=== PATIENT | female | born 1985 | race Caucasian/White ===

== ENCOUNTER 2020-06-15 13:41 | Inpatient (IN) | payer OTHER ==
[2020-06-15 17:49] LABS: HCT 40.4 % (37.0-47.0); HGB 13.8 g/dl (12.5-16.0); MCH 29.9 pg (25.0-31.0); MCHC 34.2 g/dL (32.0-36.0); MCV 87.4 fL (78.0-100.0); MPV 11.6 fL (6.0-9.5); RBC 4.62 M/uL (4.20-5.40); WBC 12.5 K/uL (4.0-10.5)
[2020-06-15 17:52] LABS: BILIRUBIN NEGATIVE (NEGATIVE); BLOOD TRACE-INTACT Ery/uL (NEGATIVE); CLARITY CLEAR (CLEAR); COLOR YELLOW (YELLOW); GLUCOSE (U) NORMAL (NORMAL); LEUKOCYTES NEGATIVE Leu/uL (NEGATIVE); NITRITE NEGATIVE (NEGATIVE); PROTEIN NEGATIVE (NEGATIVE); UROBILINOGEN 0.2 mg/dL (0.2-1.0)
[2020-06-15 18:17] LABS: BACTERIA TRACE
[2020-06-16 14:06] LABS: BILIRUBIN NEGATIVE (NEGATIVE); BLOOD NEGATIVE Ery/uL (NEGATIVE); CLARITY CLEAR (CLEAR); COLOR YELLOW (YELLOW); GLUCOSE (U) NORMAL (NORMAL); LEUKOCYTES NEGATIVE Leu/uL (NEGATIVE); NITRITE NEGATIVE (NEGATIVE); PROTEIN NEGATIVE (NEGATIVE); SPECIFIC GRAVITY 1.025 (1.001-1.030); UROBILINOGEN 0.2 mg/dL (0.2-1.0); pH 5.5 (5.0-9.0)
[2020-06-17 05:46] LABS: HCT 30.5 % (37.0-47.0); HGB 10.2 g/dl (12.5-16.0); MCH 30.1 pg (25.0-31.0); MCHC 33.4 g/dL (32.0-36.0); MPV 11.4 fL (6.0-9.5); RBC 3.39 M/uL (4.20-5.40); RDW 13.1 % (11.5-14.0); WBC 9.9 K/uL (4.0-10.5)
== END 2020-06-18 13:25 | disposition home or self-care (01) | DRG 786 ==
LOC: FOB 13:41
PROVIDERS: ADMIT Obstetrics & Gynecology
PROC: 10D00Z1 Extraction of Products of Conception, Low, Open Approach (ICD-10-PCS; principal; 2020-06-15)
DX: O36.8330 Maternal care for abnormalities of the fetal heart rate or rhythm, third trimester, not applicable or unspecified (principal); U07.1 COVID-19; D62 Acute posthemorrhagic anemia; O98.513 Other viral diseases complicating pregnancy, third trimester; Z3A.38 38 weeks gestation of pregnancy; Z37.0 Single live birth; O99.02 Anemia complicating childbirth
CPT/HCPCS: 36415; 81001; 81003; 84112; J0456; J0595; J0690; J1200; J1885; J2274; J2370; J2405; J7050; J7120